=== PATIENT | female | born 1990 | race Caucasian/White ===

== ENCOUNTER 2018-01-14 19:28 | Emergency (ER) | payer SELFPAY ==
[2018-01-14 20:47] LABS: Absolute Lymphocytes (CBC) 4.1 K/uL (0.7-4.9); Absolute Neutrophil 4.7 K/uL (1.8-8.0); Basophils % 0.7 % (0-1.3); Eosinophils % 1.4 % (0-4.4); Hematocrit 40.1 % (36.0-45.0); Lymphocytes % 40.5 % (15.3-44.8); MCH 31.2 pg (27.0-35.0); MCV 90.7 fL (80-100); MPV 8.9 fL (7.6-11.3); Monocytes % 10.5 % (3.3-12.3); RBC Red Blood Cell Count 4.43 M/uL (3.86-4.86)
[2018-01-14 20:51] LABS: Protime INR 1.07
[2018-01-14 20:57] LABS: Bicarbonate 25 mEq/L (21-31); Glucose Level 89 mg/dL (65-120); Potassium 3.3 mEq/L (3.6-5.0); Sodium Level 137 mEq/L (135-145)
[2018-01-14 20:58] LABS: BUN Blood Urea Nitrogen 13 mg/dL (6-20); Magnesium 1.9 mg/dL (1.8-2.5)
[2018-01-14] MEDS ORDERED: POTASSIUM 25 MEQ EFFERV TAB ONE (21:06)
--- NOTE | 2018-01-14 21:09 | ER ---
Nurse's Notes [facility] Name: Kristen Rose Age: 27 yrs Sex: Female : 1990 Arrival Date: 01/14/2018 Time: 19:31 Bed 30 Private MD: Diagnosis: Person with feared health complaint in whom no diagnosis is made Presentation: 01/14 19:34 Presenting complaint: Patient states: I think I got bit by something on my right leg la1 and I am having pain in my neck and back. I have also been bruising really easily. Transition of care: patient was not received from another setting of care. Onset of symptoms was January 14, 2018. Initial Sepsis Screen: Does the patient meet any 2 criteria? No. Patient's initial sepsis screen is negative. Does the patient have a suspected source of infection? No. Patient's initial sepsis screen is negative. Care prior to arrival: None. 19:34 Method Of Arrival: Ambulatory la1 19:34 Acuity: GARY 3 la1 Triage Assessment: 21:17 General: Appears in no apparent distress. well groomed, well developed, well nourished, rk2 Behavior is calm, cooperative. Pain: Complains of pain in back pain. Neuro: Level of Consciousness is alert, obeys commands, Oriented to person, place, time, situation. Respiratory: Airway is patent Respiratory effort is even, unlabored, Respiratory pattern is regular, symmetrical. GI: Reports nausea. Derm: Skin is pink, warm \T\ dry. 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 - Social history:: Smoking status: Patient uses tobacco products, smokes one-half pack cigarettes per day. Screenin:00 Abuse screen: Denies threats or abuse. rk2 20:00 Nutritional screening: No deficits noted. Tuberculosis screening: No symptoms or risk rk2 factors identified. Fall Risk None identified. Assessment: 20:45 Reassessment: No changes from previously documented assessment. Patient and/or family rk2 updated on plan of care and expected duration. Pain level reassessed. Pt. resting in room... appears to be in no obvious distress. No needs voiced. Vital Signs: 19:36 BP 131 / 82; Pulse 82; Resp 19; Temp 98.5(TE); Pulse Ox 100% on R/A; Weight 66.68 kg; la1 Height 5 ft. 7 in. (170.18 cm); 21:05 BP 137 / 73; Pulse 91; Resp 17; Pulse Ox 100% on R/A; rk2 19:36 Body Mass Index 23.02 (66.68 kg, 170.18 cm) la1 ED Course: 19:31 Patient arrived in ED. ds1 19:35 Triage completed. la1 19:36 Arm band placed on left wrist. la1 19:37 Yeison Roth PA is PHCP. cp 19:37 Mike Tolbert MD is Attending Physician. cp 19:40 Latrice Strauss, YE is Primary Nurse. rk2 20:00 Patient has correct armband on for positive identification. Bed in low position. Call rk2 light in reach. 21:33 No provider procedures requiring assistance completed. IV discontinued. rk2 Administered Medications: 21:15 Drug: Potassium Effervescent Tablet 25 mEq Route: PO; rk2 21:34 Follow up: Response: No adverse reaction rk2 Outcome: 21:08 Discharge ordered by . cp 21:33 Discharged to home ambulatory. rk2 21:33 Condition: good 21:33 Discharge instructions given to patient. 21:35 Patient left the ED. rk2 Signatures: Belinda Dickey ds1 Juliocesar Spears RN RN la1 Yeison Roth PA PA cp Latrice Strauss RN RN rk2
--- NOTE | 2018-01-14 21:10 | EDPHYS ---
Physician Documentation [facility] Name: Kristen Rose Age: 27 yrs Sex: Female : 1990 Arrival Date: 01/14/2018 Time: 19:31 Bed 30 Private MD: ED Physician Mike Tolbert HPI: 01/14 20:10 This 27 yrs old Female presents to ER via Ambulatory with complaints of cp Spider Bite, Leg Swelling, Nausea. 20:10 The patient was bitten on the right leg, by possible spider. Onset: The cp symptoms/episode began/occurred today. Associated signs and symptoms: Pertinent negatives: fever, pain at site, suspected foreign body. Patient also reports concern for easy bruising and swelling of legs, nausea, intermittent chest and abdominal pain. 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 - Social history:: Smoking status: Patient uses tobacco products, smokes one-half pack cigarettes per day. ROS: 20:15 Constitutional: Negative for body aches, chills, fever, poor PO intake. cp 20:15 Eyes: Negative for injury, pain, redness, and discharge. cp 20:15 ENT: Negative for drainage from ear(s), ear pain, sore throat, difficulty swallowing, difficulty handling secretions. 20:15 Cardiovascular: Negative for chest pain, palpitations. 20:15 Respiratory: Negative for cough, shortness of breath, wheezing. 20:15 MS/extremity: Positive for swelling, of the right leg and left leg, Negative for injury or acute deformity, pain, paresthesias. 20:15 Neuro: Negative for altered mental status, dizziness, headache, syncope, near syncope, weakness. 20:15 Hematologic/Lymphatic: Positive for "bruising" of legs, Negative for abnormal bleeding, swollen nodes. 20:15 All other systems are negative. Exam: 20:18 Constitutional: The patient appears in no acute distress, alert, awake, non-toxic, well cp developed, well nourished, anxious. 20:18 Head/Face: Normocephalic, atraumatic. Eyes: Pupils equal round and reactive to light, cp extra-ocular motions intact. Lids and lashes normal. Conjunctiva and sclera are non-icteric and not injected. Cornea within normal limits. Periorbital areas with no swelling, redness, or edema. ENT: Nares patent. No nasal discharge, no septal abnormalities noted. Tympanic membranes are normal and external auditory canals are clear. Oropharynx with no redness, swelling, or masses, exudates, or evidence of obstruction, uvula midline. Mucous membranes moist. Chest/axilla: Normal chest wall appearance and motion. Nontender with no deformity. No lesions are appreciated. 20:18 Cardiovascular: Rate: normal, Rhythm: regular, Heart sounds: murmur, not appreciated, rub, not appreciated, gallop, not appreciated, Edema: is not appreciated, JVD: is not appreciated. 20:18 Respiratory: the patient does not display signs of respiratory distress, Respirations: normal, no use of accessory muscles, no retractions, no splinting, no tachypnea, labored breathing, is not present, Breath sounds: are clear throughout, no decreased breath sounds, no stridor, no wheezing. 20:18 Abdomen/GI: Inspection: abdomen appears normal, Bowel sounds: active, all quadrants, Palpation: soft, in all quadrants, mild abdominal tenderness, in the left lower quadrant, rebound tenderness, is not appreciated, voluntary guarding, is not appreciated, involuntary guarding, is not appreciated. 20:18 Back: pain, is absent, ROM is normal. 20:18 Musculoskeletal/extremity: Exam is negative for bony tenderness, calf tenderness, deformity, edema, injury, ROM: intact in all extremities, Sensation intact. 20:18 Skin: cellulitis, is not appreciated, injury, is not appreciated, no rash present. 20:18 Neuro: Orientation: to person, place \\T\\ time. Mentation: lucid, able to follow commands, Cerebellar function: is grossly normal, Motor: moves all fours, strength is normal, Sensation: no obvious gross deficits. Vital Signs: 19:36 BP 131 / 82; Pulse 82; Resp 19; Temp 98.5(TE); Pulse Ox 100% on R/A; Weight 66.68 kg; la1 Height 5 ft. 7 in. (170.18 cm); 21:05 BP 137 / 73; Pulse 91; Resp 17; Pulse Ox 100% on R/A; rk2 19:36 Body Mass Index 23.02 (66.68 kg, 170.18 cm) la1 MDM: 19:37 Patient medically screened. cp 21:00 Differential diagnosis: cellulitis, abscess, blood clotting disorder, renal cp insufficiency. 21:05 Data reviewed: vital signs, nurses notes, lab test result(s), and as a result, I will cp discharge patient. 01/14 20:03 Order name: CBC with Diff; Complete Time: 21:03 cp 01/14 20:03 Order name: BMP; Complete Time: 21:03 cp 01/14 21:03 Interpretation: Normal except: K 3.3. cp 01/14 20:03 Order name: PT-INR; Complete Time: 21:03 cp 01/14 21:04 Interpretation: Abnormal: PT 12.6. cp 01/14 20:03 Order name: Ptt, Activated; Complete Time: 21:03 cp 01/14 20:03 Order name: Magnesium; Complete Time: 21:03 cp 01/14 21:02 Order name: Urine Dipstick--Ancillary (enter results) rg2 01/14 20:03 Order name: Urine Dipstick-Ancillary (obtain specimen); Complete Time: 21:04 cp 01/14 20:03 Order name: Urine Test (obtain specimen); Complete Time: 21:04 cp 01/14 21:02 Order name: Urine --Ancillary (enter results) rg2 Administered Medications: 21:15 Drug: Potassium Effervescent Tablet 25 mEq Route: PO; rk2 21:34 Follow up: Response: No adverse reaction rk2 Disposition: 01/14/18 21:08 Discharged to Home. Impression: Person with feared health complaint in whom no diagnosis is made. - Condition is Stable. - Medication Reconciliation Form, Thank You Letter, Antibiotic Education, Prescription Opioid Use form. - Follow up: Private Physician; When: 2 - 3 days; Reason: Recheck today's complaints. - Problem is new. - Symptoms are unchanged. Addendum: 01/29/2018 10:02 Co-signature as Attending Physician, Mike Tolbert MD. m a2 Signatures: Dispatcher [employer] EDMS Juliocesar Spears RN RN la1 Yeison Roth PA PA cp Alzahri, Mohammad, MD MD ma2 Latrice Strauss RN RN rk2 Corrections: (The following items were deleted from the chart) 01/14 21:35 21:08 01/14/2018 21:08 Discharged to Home. Impression: Person with feared health rk2 complaint in whom no diagnosis is made. Condition is Stable. Forms are Medication Reconciliation Form, Thank You Letter, Antibiotic Education, Prescription Opioid Use. Follow up: Private Physician; When: 2 - 3 days; Reason: Recheck today's complaints. Problem is new. Symptoms are unchanged. cp 01/15 20: 20:10 Constitutional: Negative for body aches, chills, fever, poor PO intake, cp cp 20:13 20:10 Eyes: Negative for injury, pain, redness, and discharge, cp cp 20:13 20:10 ENT: Negative for drainage from ear(s), ear pain, sore throat, difficulty cp swallowing, difficulty handling secretions, cp 20:13 20:10 Neck: Negative for pain with movement, pain at rest, stiffness, tenderness, bony cp tenderness, cp 20:13 20:10 Cardiovascular: Negative for chest pain, edema, palpitations, cp cp 20:13 20:10 Respiratory: Negative for cough, shortness of breath, wheezing, cp cp 20:13 20:10 Abdomen/GI: Positive for abdominal pain, nausea, Negative for vomiting, diarrhea, cp constipation, anorexia, black/tarry stool, rectal bleeding, cp 20:13 20:10 Back: Negative for pain at rest, pain with movement, radiated pain, cp cp 20:13 20:10 : Negative for urinary symptoms, pelvic pain, cp cp 20:13 20:10 Hematologic/Lymphatic: Positive for easy bruising, cp cp 20:13 20:10 MS/extremity: Positive for swelling, of the right leg and left leg, cp cp 20:13 20:10 Neuro: Negative for altered mental status, dizziness, headache, syncope, near cp syncope, weakness, cp 20:13 20:10 All other systems are negative, cp cp
[2018-01-14 21:34] LABS: Urine Blood TRACE (NEG); Urine Glucose NEGATIVE (NEG); Urine Protein NEGATIVE (NEG); Urine Specific Gravity 1.015 (1.005-1.030)
== END 2018-01-14 21:35 | disposition home or self-care (01) ==
LOC: ER 19:28
DX: Z71.1 Person with feared health complaint in whom no diagnosis is made (principal); F17.210 Nicotine dependence, cigarettes, uncomplicated
CPT/HCPCS: 36415; 80048; 81003; 81025; 83735; 85025; 85610; 85730; 99283

== ENCOUNTER 2021-08-05 11:03 | Emergency (ER) | payer BC, SELFPAY ==
--- OUTSIDE RECORDS SUMMARY | 2021-08-05 11:11 | XMS REPORT | Continuity of Care Document ---
:1990 Author Organization [facility] t Address [address] [place] [address] [address]. [address] [place] [address] Care Team Providers Name Role Phone Juanito NORMAN APRN Attending Clinician Unavailable Shaina ROSENBAUM Attending Clinician Unavailable Advance Directives Directive Decision Effective Date Termination Date Comments Sour ce Yes N/A [facility] Condition Condition Condition Status Onset Resolution Last Treating Co mments Source Name Details Category Date Date Treatment Clinician Date Abnormal Problem Active [facility] vaginal S bleeding Health Nausea Problem Active [facility] Problem Problem [facility] Allergies, Adverse Reactions, Alerts This patient has no known allergies or adverse reactions. Social History Social Habit Start Date Stop Date Quantity Comments Source Sex Assigned At [birth year] Female [facility] 00:00:00 00:00:00 Smoking Status Start Date Stop Date Source Never smoked tobacco (finding) C Snapsheet Medications Ordered Filled Start Stop Current Ordering Indication Dosage Frequency Signature Comments Components Source Medication Medication Date Date Medication? Clinician (SIG) Name Name Cyclobenzap No 5mg Tid Prn as [facility] rine Hcl 12-03 needed for S (Flexeril) 22:50: Muscle Healt h 5 Mg TAB 00 Pain Naproxen No 500mg Twice A SARABJIT TU (Naprosyn) 12-03 Day as S 500 Mg TAB 22:50: needed for H ealth 00 Pain Tramadol No 50mg Q 4-6 Hr SARABJIT TU Hcl 12-03 Prn as S (Ultram) 50 22:50: needed for Health Mg TAB 00 Pain Metoclopram 0 No 10mg Three SARABJIT TU aj Hcl 1-18 Times A S (Reglan) 10 12:39: Day as Heal th Mg TAB 00 needed for Nausea Metoclopram 0 No 10mg Three SARABJIT TU aj Hcl 1-18 Times A S (Reglan) 10 12:39: Day as Heal th Mg TAB 00 needed for Nausea Vital Signs Vital Name Observation Time Observation Value Comments Source BP Diastolic 2020-12-03 23:20:00 72 mm[Hg] [facility] [employer] BP Systolic 2020-12-03 23:20:00 136 mm[Hg] [facility] [employer] Heart Rate 2020-12-03 23:20:00 88 /min [facility] Respiratory rate 2020-12-03 23:20:00 16 /[facility] Temperature 2020-12-03 23:20:00 98.7 [degF] [facility] Respiratory rate 2020-12-03 21:13:00 16 /min [facility] [employer] Heart Rate 2020-12-03 20:04:00 88 /min [facility] [employer] Respiratory rate 2020-12-03 20:04:00 18 /min [facility] Body Temperature 2020-12-03 20:04:00 98.7 [degF] [facility] Diastolic 2020-12-03 20:04:00 72 mm[Hg] [facility] [employer] BP Systolic 2020-12-03 20:04:00 136 mm[Hg] [facility] [employer] Body Temperature 2019-09-22 12:49:00 97.8 [degF] [facility] Heart Rate 2019-09-22 12:49:00 79 /min [facility] Respiratory rate 2019-09-22 12:49:00 18 /min [facility] [employer] BP Systolic 2019-09-22 12:49:00 100 mm[Hg] [facility] BP Diastolic 2019-09-22 12:49:00 63 mm[Hg] [facility] Weight 2019-09-22 11:27:00 136 [lb_av] [facility] BMI (Body Mass Index) 2019-09-22 11:27:00 20.7 kg/m2 [facility] Procedures Procedure Date / Time Performed Performing Clinician Sour e Computed tomography of 2020-12-03 00:00:00 [employer] cervical spine without contrast Computed tomography of 2020-12-03 00:00:00 [facility] [employer] head or brain without contrast X-ray of lumbosacral 2020-12-03 00:00:00 [facility] [employer] spine, two or three views Encounters Start End Encounter Admission Attending Care Care Encounter Source Date/Time Date/Time Type Type Clinicians Facility Department ID 2020-12-03 Inpatient EDITH SHARMA [id number] [facility] 20:02:00 [id number] [facility] 2020-12-24 2020-12-24 Outpatient EDITH ALBERTO [id number] [facility] 11:07:00 11:07:00 EDWARD [id number] [facility] 2020-12-03 2020-12-03 Departed GAL SHARMA [id number] [facility] 20:02:00 23:22:00 Emergency [facility] [address] [facility] 2019-11-15 2019-11-15 Outpatient ASAD GARCIA 1 [id number] [facility] 10:30:00 10:30:00 [id number] [facility] 2019-09-22 2019-09-22 Registered TRINIDADGABRIELA TRINIDAD LA00 [id number] [facility] 11:08:00 11:08:00 Emergency [facility] 73 [facility] Results Test Description Test Time Test Comments Results Result Comments Source Specific gravity of Urine by Refractometry 2020-12-03 21:15: 00 Test Item Value Reference Range Interpretation Comme nts Urine Specific [place] (Refractom) (test code = 5810-7) 1.020 1.005-1.030 [facility] HealthUrine beta-human chorionic gonadotropin (BhCG) detection 2020-12-03 21:15:00 Test Item Value Reference Range Interpretation Comments Urine Test (test code = Negative Negative 2-1) [facility] HealthUrinalysis specimen collection [id number] 11:45:00 Test Item Value Reference Range Interpretation Comments Urine Source (test code = Cl Catch [place] 44324-9) [facility] HealthUrine color [id number] 11:45:00 Test Item Value Reference Range Interpretation Comments Urine Color (test code = 5778-6) Red Yellow [facility] HealthUrine appearance [id number] 11:45:00 Test Item Value Reference Range Interpretation Comments Urine Appearance (test code = Very Cloudy Clear 5767-9) [facility] HealthUrine pH measurement by test [id number] 11:45:00 Test Item Value Reference Range Interpretation Comments Urine pH (test code = 5803-2) 6.0 [pH] 5.0-9.0 [facility] HealthSpecific gravity of Urine by Test [id number] 11:45:00 Test Item Value Reference Range Interpretation Comments Urine Specific [place] (test code = 1.020 1.000-1.030 5811-5) [facility] HealthUrine protein measurement by automated test strip (mass/volume) 2019-09-22 11:45:00 Test Item Value Reference Range Interpretation Comments Urine Protein (test code = 85230-3) 30 mg/dL Negative [facility] HealthUrine glucose measurement by automated test strip (mass/volume) 2019-09-22 11:45:00 Test Item Value Reference Range Interpretation Comments Urine Glucose (UA) (test code = Normal mg/dL Normal 88834-1) [facility] HealthUrine ketones detection by automated test [id number] 11:45:00 Test Item Value Reference Range Interpretation Comments Urine Ketones (test code = Negative mg/dL Negative 74654-6) [facility] HealthUrine erythrocytes count by automated test strip (number/volume) 2019-09-22 11:45:00 Test Item Value Reference Range Interpretation Comments Urine Occult Blood (test code = 250 /uL Negative 43000-8) [facility] HealthUrine nitrite detection by automated test [id number] 11:45:00 Test Item Value Reference Range Interpretation Comments Urine Nitrite (test code = 68528-6) Negative Negative [facility] HealthUrine total bilirubin detection by automated test [id number] 11:45:00 Test Item Value Reference Range Interpretation Comments Urine Bilirubin (test code = Negative mg/dL Negative 16333-4) [facility] HealthUrine urobilinogen measurement by automated test strip (mass/volume)2019-09-22 11:45:00 Test Item Value Reference Range Interpretation Comments Urine Urobilinogen (test code = Normal mg/dL Normal 48807-5) [facility] HealthUrine leukocyte esterase detection by automated test strip 2019-09-22 11:45:00 Test Item Value Reference Range Interpretation Comments Urine Leukocyte Esterase (test code = 100 /uL Negative 99991-0) [facility] HealthUrine microscopic examination for dysmorphic red blood cells 2019-09-22 11:45:00 Test Item Value Reference Range Interpretation Comments Urine RBC (test code = 33132-4) 100+ /[HPF] 0-2 [facility] HealthAutomated leukocytes count in urine sediment by microscopy high power field (number/[id number] 11:45:00 Test Item Value Reference Range Interpretation Comments Urine WBC (test code = 5821-4) 2-4 /[HPF] 0-5 [facility] HealthUrine sediment squamous epithelial cell count by microscopy (number/lowpower field)2019-09-22 11:45:00 Test Item Value Reference Range Interpretation Comments Urine Squamous Epithelial Cells 1+ Few /[LPF] (test code = 02372-2) [facility] HealthUrine sediment bacteria count by microscopy (number/high power field)2019-09-22 11:45:00 Test Item Value Reference Range Interpretation Comments Urine Bacteria (test code = 1+ Few /[HPF] Few/HPF 5769-5) [facility] HealthService comment [id number] 11:45:00 Test Item Value Reference Range Interpretation Comments Urine Culture Indicated No, Criteria Not Met (test code = 8264-4) [facility] HealthAutomated blood leukocyte count (number/volume)2019-09-22 11:35:00 Test Item Value Reference Range Interpretation Comments White Blood Count (test code = 4.0 10*3/uL 4.6-10.2 6690-2) [facility] HealthBlood erythrocytes automated count (number/volume)2019-09-22 11:35:00 Test Item Value Reference Range Interpretation Comments Red Blood Count (test code = 4.27 10*6/uL 4.2-5.4 789-8) [facility] HealthBlood hemoglobin measurement (mass/volume)2019-09-22 11:35:00 Test Item Value Reference Range Interpretation Comments Hemoglobin (test code = 718-7) 13.0 g/dL 12.0-16.0 [facility] HealthAutomated blood hematocrit (volume fraction)2019-09-22 11:35:00 Test Item Value Reference Range Interpretation Comments Hematocrit (test code = 4544-3) 39.0 % 37.0-47.0 [facility] HealthAutomated erythrocyte mean corpuscular volume (MCV) measurement 2019-09-22 11:35:00 Test Item Value Reference Range Interpretation Comments Mean Corpuscular Volume (test code = 91.3 fL 80-97 787-2) [facility] HealthAutomated erythrocyte mean corpuscular hemoglobin (mass per erythrocyte)2019-09-22 11:35:00 Test Item Value Reference Range Interpretation Comments Mean Corpuscular Hemoglobin (test 30.4 pg 27.0-31.2 code = 785-6) [facility] HealthAutomated erythrocyte mean corpuscular hemoglobin concentration (MCHC) measurement ([id number] 11:35:00 Test Item Value Reference Range Interpretation Comments Mean Corpuscular Hemoglobin Concent 33.3 g/dL 31.8-35.4 (test code = 786-4) [facility] HealthAutomated erythrocyte distribution width [id number] 11:35:00 Test Item Value Reference Range Interpretation Comments Red Cell Distribution Width (test code 12.9 % 12.5-18.0 = 788-0) [facility] HealthAutomated blood platelet count (count/volume)2019-09-22 11:35:00 Test Item Value Reference Range Interpretation Comments Platelet Count (test code = 319 10*3/uL 142-424 777-3) [facility] HealthAutomated blood neutrophil count as percentage of total [id number] 11:35:00 Test Item Value Reference Range Interpretation Comments Neutrophils (%) (Auto) (test code = 42.7 % 37-80 770-8) [facility] HealthAutomated blood lymphocyte count as percentage of total [id number] 11:35:00 Test Item Value Reference Range Interpretation Comments Lymphocytes (%) (Auto) (test code = 43.4 % 25-40 736-9) [facility] HealthAutomated blood monocyte count as percentage of total leukocytes 2019-09-22 11:35:00 Test Item Value Reference Range Interpretation Comments Monocytes (%) (Auto) (test code = 10.7 % 1-15 5905-5) [facility] HealthAutomated blood eosinophil count as percentage of total [id number] 11:35:00 Test Item Value Reference Range Interpretation Comments Eosinophils (%) (Auto) (test code = 2.2 % 1-3 713-8) [facility] HealthAutomated blood basophil count as percentage of total leukocytes 2019-09-22 11:35:00 Test Item Value Reference Range Interpretation Comments Basophils (%) (Auto) (test code = 1.0 % 0-3 706-2) [facility] HealthAutomated blood nucleated erythrocyte count as percentage of total [id number] 11:35:00 Test Item Value Reference Range Interpretation Comments Nucleated Red Blood Cells % (test code 0.0 % = 87771-4) [facility] HealthAutomated blood neutrophil count (number/volume)2019-09-22 11:35:00 Test Item Value Reference Range Interpretation Comments Neutrophils # (Auto) (test code 1.72 10*3/uL 1.8-7.7 = 751-8) [facility] HealthSodium measurement (moles/volume)2019-09-22 11:35:00 Test Item Value Reference Range Interpretation Comments Sodium Level (test code = 56817-2) 137 mmol/L 135-145 [facility] HealthSerum or plasma potassium measurement (moles/volume)2019-09-22 11:35:00 Test Item Value Reference Range Interpretation Comments Potassium Level (test code = 3.8 mmol/L 3.6-5.2 2823-3) [facility] HealthSerum or plasma chloride measurement (moles/volume)2019-09-22 11:35:00 Test Item Value Reference Range Interpretation Comments Chloride Level (test code = 101 mmol/L 742-127 1670-0) [facility] HealthSerum or plasma carbon dioxide measurement (moles/volume) 2019-09-22 11:35:00 Test Item Value Reference Range Interpretation Comments Carbon Dioxide Level (test code = 28 mmol/L -32 2027-9) [facility] HealthSerum or plasma urea nitrogen measurement (mass/volume)2019-09-22 11:35:00 Test Item Value Reference Range Interpretation Comments Blood Urea Nitrogen (test code = 8 mg/dL 03-22 3094-0) [facility] HealthSerum or plasma creatinine measurement (mass/volume)2019-09-22 11:35:00 Test Item Value Reference Range Interpretation Comments Creatinine (test code = 2160-0) 0.77 mg/dL 0.55-1.02 [facility] HealthGFR estimate [id number] 11:35:00 Test Item Value Reference Range Interpretation Comments Estimat Glomerular Filtration Rate > 60 >60 (test code = 71994-9) [facility] HealthSerum or plasma urea nitrogen/creatinine mass [id number] 11:35:00 Test Item Value Reference Range Interpretation Comments BUN/Creatinine Ratio (test code 10.38 {ratio} 03-22 = 3097-3) [facility] HealthSerum or plasma glucose measurement (mass/volume)2019-09-22 11:35:00 Test Item Value Reference Range Interpretation Comments Glucose Level (test code = 2345-7) 106 mg/dL 70-110 [facility] or plasma calcium measurement (mass/volume)2019-09-22 11:35:00 Test Item Value Reference Range Interpretation Comments Calcium Level (test code = 45504-6) 8.9 mg/dL 8.8-10.5 [facility]
[2021-08-05 13:45] LABS: Urine Blood Negative (Negative); Urine Glucose Negative (Negative); Urine Protein Negative (Negative); Urine Specific Gravity 1.015 (1.005-1.030); Urine pH 5.5 (5.0-7.0)
[2021-08-05 13:56] LABS: Absolute Lymphocytes (CBC) 2.4 K/uL (0.7-4.9); Basophils % 0.7 % (0-1.3); Lymphocytes % 41.4 % (15.3-44.8); MPV 8.1 fL (7.6-11.3); RBC Red Blood Cell Count 3.89 M/uL (3.86-4.86)
[2021-08-05 14:42] LABS: Urine Specific Gravity/Preg 1.015 (1.005-1.030)
--- NOTE | 2021-08-05 14:43 | RAD REPORT ---
EXAM DESCRIPTION: US - TRANSVAG OB - 08/05/2021 2:24 pm CLINICAL HISTORY: with abdominal pain COMPARISON: None FINDINGS: The uterus measures 9 x 6 x 6 centimeters. A sac is present within the endometrium measur ing 6 millimeters. A yolk sac is not seen. A pole is not visualized The ovaries are normal in size echotexture. Nabothian cysts within the cervix Right and left adnexa unremarkable. No significant free fluid IMPRESSION: Sac within the endometrium may indicate early normal IUP. Gestational age 5 weeks 3 days with an PASTORA 04/04/2022. Incomplete and pseudo gestational sac associated with an ectopic pr egnancy can also have this appearance. This should be correlated clinically and with serial beta HCG levels. Follow up endovaginal sonogram in 1 week recommended
[2021-08-05 14:45] LABS: BUN Blood Urea Nitrogen 5 mg/dL (7-18); Bicarbonate 27 mmol/L (21-32); Glucose Level 88 mg/dL (74-106); HCG, Quantitative 5486 mIU/mL (1-3); Potassium 3.8 mmol/L (3.5-5.1); Sodium Level 140 mmol/L (136-145)
[2021-08-05] MEDS ORDERED: CEFTRIAXONE 1000 MG/VIAL ONE (15:43)
--- NOTE | 2021-08-05 15:47 | EDPHYS ---
Physician Documentation [facility] Name: Kristen Rose Age: 30 yrs Sex: Female : 1990 Arrival Date: 08/05/2021 Time: 11:07 Bed 19 Private MD: ED Physician Yeison Choi HPI: 08/05 12:58 This 30 yrs old Female presents to ER via Ambulatory with complaints of Pelvic Pain - 5 jmm wks preg. 12:58 The patient presents with vaginal bleeding that is. Onset: The symptoms/episode jmm began/occurred gradually, 1 day(s) ago. Modifying factors: The symptoms are alleviated by nothing, the symptoms are aggravated by nothing. Associated signs and symptoms: Pertinent negatives: fever. Is a 30-year-old female presents ED with complaints of mild vaginal bleeding beginning yesterday after intercourse. Patient also complains of some diarrhea and left lower quadrant abdominal pain. Denies vomiting.. 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 - Social history:: Smoking status: Patient/guardian denies using tobacco, the patient reports quitting approximately 2 years ago. ROS: 12:58 Constitutional: Negative for fever, chills, and weight loss, Cardiovascular: Negative jmm for chest pain, palpitations, and edema, Respiratory: Negative for shortness of breath, cough, wheezing, and pleuritic chest pain. 12:58 Abdomen/GI: Positive for abdominal pain, diarrhea. 12:58 : Positive for vaginal bleeding. 12:58 All other systems are negative. Exam: 12:58 Constitutional: This is a well developed, well nourished patient who is awake, alert, jmm and in no acute distress. Head/Face: atraumatic. Eyes: EOMI, no conjunctival erythema appreciated ENT: Moist Mucus Membranes Neck: Trachea midline, Supple Chest/axilla: Normal chest wall appearance and motion. Cardiovascular: Regular rate and rhythm. No edema appreciated Respiratory: Normal respirations, no respiratory distress appreciated 12:58 Back: Normal ROM Skin: General appearance color normal MS/ Extremity: Moves all extremities, no obvious deformities appreciated, no edema noted to the lower extremities Neuro: Awake and alert, normal gait Psych: Behavior is normal, Mood is normal, Patient is cooperative and pleasant 12:58 Abdomen/GI: Inspection: abdomen appears normal, Bowel sounds: normal, Palpation: soft, mild abdominal tenderness, in the left lower quadrant. Vital Signs: 11:29 BP 109 / 77; Pulse 102; Resp 16; Temp 98.6; Pulse Ox 100% ; Weight 65.32 kg; Height 5 vg1 ft. 8 in. (172.72 cm); Pain 4/10; 11:29 Body Mass Index 21.89 (65.32 kg, 172.72 cm) vg1 MDM: 12:58 Patient medically screened. [facility] 15:45 Data reviewed: vital signs, nurses notes. Counseling: I had a detailed discussion with eddie the patient and/or guardian regarding: the historical points, exam findings, and any diagnostic results supporting the discharge/admit diagnosis, lab results, radiology results, the need for outpatient follow up, to return to the emergency department if symptoms worsen or persist or if there are any questions or concerns that arise at home. ED course: Patient is alert nontoxic in appearance in the ED. I do not suspect an acute intra-abdominal process. Ultrasound revealed IUP. Will treat for asymptomatic bacteriuria. Patient otherwise given strict return precautions. Patient understood agrees plan of care.. 12 12:59 Order name: Abo/rh Typing; Complete Time: 15:38 [facility] 08/05 12:59 Order name: Basic Metabolic Panel; Complete Time: 14:48 [facility] 08/05 12:59 Order name: CBC with Diff; Complete Time: 14:02 [facility] 08/05 12:59 Order name: Quantitative Hcg; Complete Time: 14:48 [facility] 08/05 13:44 Order name: Urine Dipstick-Ancillary; Complete Time: 13:45 [facility] 08/05 13:46 Order name: Urine --Ancillary (enter results) bd 08/05 12:59 Order name: IV Saline Lock; Complete Time: 13:57 [facility] 08/05 12:59 Order name: Labs collected and sent; Complete Time: 13:57 [facility] 08/05 12:59 Order name: NPO; Complete Time: 13:57 [facility] 08/05 12:59 Order name: Urine Dipstick-Ancillary (obtain specimen); Complete Time: 13:57 [facility] 08/05 13:47 Order name: Urine --Ancillary; Complete Time: 14:48 EDMS 08/05 14:23 Order name: TRANSVAG OB; Complete Time: 14:48 EDMS Administered Medications: 15:43 Drug: Rocephin (cefTRIAXone) 1 grams Route: IV; Rate: bolus; Site: left antecubital; sl2 Disposition: 08/06 09:17 Co-signature as Attending Physician, Yeison Choi MD I agree with the assessment and toya plan of care. Disposition Summary: 08/05/21 15:47 Discharge Ordered Location: Home [facility] Condition: Stable [facility] Diagnosis - Pelvic and perineal pain jmm - Diarrhea, unspecified jmm Followup: [facility] - With: Private Physician - When: 2 - 3 days - Reason: Recheck today's complaints, Continuance of care, Re-evaluation by your physician Discharge Instructions: - Discharge Summary Sheet [facility] Forms: - Medication Reconciliation Form [facility] - Thank You Letter [facility] - Antibiotic Education [facility] - Prescription Opioid Use [facility] Prescriptions: - Cephalexin 500 mg Oral Capsule - take 1 capsule by ORAL route every 8 hours for 10 days; 30 capsule; Refills: 0, [facility] Product Selection Permitted Signatures: Dispatcher [employer] Yeison Payton MD MD cha Mickail, Joel, PA PA jmm Garcia, Victoria, RN RN vg1 Rita Knutson, RN RN sl2 Corrections: (The following items were deleted from the chart) 08/05 11:34 11:32 PSHx: None; vg1 vg1 14:23 13:46 1st Trimest Single 1st Fetus+US.RAD.BRZ ordered. EDSD EDSD
--- NOTE | 2021-08-05 15:47 | ER ---
Nurse's Notes [facility] Name: Kristen Rose Age: 30 yrs Sex: Female : 1990 Arrival Date: 08/05/2021 Time: 11:07 Bed 19 Private MD: Diagnosis: Pelvic and perineal pain;Diarrhea, unspecified Presentation: 08/05 11:29 Chief complaint: Patient states: States is 5 weeks and has been having LLQ and vg1 Pelvic pain x 4 days, pain is 'stabbing/cramping'. States nausea; denies vaginal bleeding or burning upon urination. States hx of Chronic Kidney Disease Stage 1. Coronavirus screen: Vaccine status: Patient reports being unvaccinated. Client denies travel out of the [place] in the last 14 days. Ebola Screen: Patient negative for fever greater than or equal to 101.5 degrees Fahrenheit, and additional compatible Ebola Virus Disease symptoms. Initial Sepsis Screen: Does the patient meet any 2 criteria? No. Patient's initial sepsis screen is negative. Does the patient have a suspected source of infection? No. Patient's initial sepsis screen is negative. Risk Assessment: Do you want to hurt yourself or someone else? Patient reports no desire to harm self or others. Onset of symptoms was August 01, 2021. 11:29 Method Of Arrival: Ambulatory 1 11:29 Acuity: GARY 3 vg1 Triage Assessment: 11:32 General: Appears in no apparent distress. uncomfortable, Behavior is calm, cooperative. vg1 Pain: Complains of pain in suprapubic area and left lower quadrant. 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 - Social history:: Smoking status: Patient/guardian denies using tobacco, the patient reports quitting approximately 2 years ago. Screenin:00 Abuse screen: Denies threats or abuse. Denies injuries from another. sl2 14:00 Nutritional screening: No deficits noted. Tuberculosis screening: No symptoms or risk sl2 factors identified. Fall Risk None identified. Vital Signs: 11:29 BP 109 / 77; Pulse 102; Resp 16; Temp 98.6; Pulse Ox 100% ; Weight 65.32 kg; Height 5 vg1 ft. 8 in. (172.72 cm); Pain 4/10; 11:29 Body Mass Index 21.89 (65.32 kg, 172.72 cm) vg1 ED Course: 11:07 Patient arrived in ED. as 11:32 Triage completed. vg1 11:32 Arm band placed on. vg1 12:53 Clark Michaud PA is PHCP. eddie 12:58 Yeison Choi MD is Attending Physician. toya 13:30 Rita Knutson, RN is Primary Nurse. sl2 13:57 Inserted saline lock: 20 gauge in left antecubital area, using aseptic technique. Blood sl2 collected. 14:00 Patient has correct armband on for positive identification. Placed in gown. Bed in low sl2 position. Side rails up X 1. 14:00 No provider procedures requiring assistance completed. sl2 14:02 Patient taken to ultrasound. via wheelchair. sl2 14:08 IV discontinued, intact, bleeding controlled, No redness/swelling at site. Pressure sl2 dressing applied. 14:25 TRANSVAG OB In Process Unspecified. EDMS Administered Medications: 15:43 Drug: Rocephin (cefTRIAXone) 1 grams Route: IV; Rate: bolus; Site: left antecubital; sl2 Outcome: 15:47 Discharge ordered by MD. morgan 15:55 Discharged to home sl2 15:55 Condition: stable 15:55 Discharge instructions given to patient, Instructed on discharge instructions, follow up and referral plans. Demonstrated understanding of instructions, follow-up care, medications, Prescriptions given X 1. 16:15 Patient left the ED. sl2 Signatures: Dispatcher [employer] EDMS Yeison Choi MD MD cha Mickail, Joel, PA PA jmm Martinez, Amelia as Garcia, Victoria, RN RN vg1 Rita Knutson, RN RN sl2 Corrections: (The following items were deleted from the chart) 11:34 11:32 PSHx: None; vg1 vg1
[2021-08-05 16:23] VITALS: BP 109/77; TEMP 98.6; O2SAT 100
== END 2021-08-05 16:15 | disposition home or self-care (01) ==
LOC: ER 11:03
DX: O26.891 Other specified pregnancy related conditions, first trimester (principal); R19.7 Diarrhea, unspecified; Z3A.01 Less than 8 weeks gestation of pregnancy
CPT/HCPCS: 36415; 76813; 80048; 81003; 81025; 84702; 85025; 86900; 86901; 96374; 99284

== ENCOUNTER 2022-02-03 17:12 | Emergency (ER) | payer OTHER ==
--- OUTSIDE RECORDS SUMMARY | 2022-02-03 17:16 | XMS REPORT | Continuity of Care Document ---
:1990 Author Organization [facility] t Address [address] [place] [address] Care Team Providers Name Role Phone [facility] Primary Care Physician Unavailable LISA COPELAND Attending Clinician Unavailable Juan STANLEY Attending Clinician Unavailable Sebastian SHAFFER Attending Clinician Lisa Copeland MD Attending Clinician Case RN, A Attending Clinician Unavailable SEBASTIAN Attending Clinician Unavailable London RAMOS Attending Clinician Doctor Unassigned, Name Attending Clinician Unavailable Juanito NORMAN APRN Attending Clinician Unavailable ROBI, Shaina Attending Clinician Unavailable Payers Payer Name Policy Type Policy Number Effective Date Expiration Date Juan combs [facility] [id number] 2021 00:00:00 Problems Condition Condition Condition Status Onset Resolution Last Treating Co mments Source Name Details Category Date Date Treatment Clinician Date Dysuria Dysuria Disease Active 2021- Univers 5-23 ity of 00:00: [place] 00 Medical Branch Vaginal Vaginal Disease Active 2021- Univers discharge discharge 5-23 ity of 00:00: [place] 00 Medical Branch ASCUS with ASCUS with Disease Active 2021- U nivers positive positive 4-11 ity of high risk high risk 00:00: [place] s HPV HPV 00 Medical cervical cervical Branch Medication Medication Disease Active 2021-0 U nivers exposure exposure 2-23 ity of during during 00:00: [place] first first 00 Medical trimester trimester Bran ch of of High risk High risk Disease Active Uni vers , , 10-28 it y of ante[place] [facility] Generalize Generalize Disease Active U nivers d anxiety d anxiety 10-28 ity of disorder disorder 00:00: [address] PTSD PTSD Disease Active Univers (post-trau (post-trau 10-28 it y of matic matic 00:00: [place] stress stress 00 Medical disorder) disorder) Bran ch History of History of Disease Active U nivers herpes herpes 10-28 ity of genitalis [place]is [place] [facility] Acute pain Acute pain Disease Active U nivers of left of left 10-28 ity of knee knee 00:00: [address] Chest Chest Disease Active Univers pain, pain, 10-28 ity of unspecifie unspecifie [place] d type Medical [place] Nausea Problem Active [facility] Problem Problem [facility] Abnormal Problem Active [facility] vaginal S bleeding Health Allergies, Adverse Reactions, Alerts Allergy Allergy Status Severity Reaction(s) Onset Inactive Treating Comm ents Source Name Type Date Date Clinician NO KNOWN Drug Active Univers ALLERGIE Class ity of S [facility] Social History Social Habit Start Date Stop Date Quantity Comments Source ASSERTION 2021-07-11 [facility] 00:00:00 [facility] History of Smoker University of tobacco use [facility] Tobacco use and 2022-01-25 2022-01-25 Never used Universit y of exposure 00:00:00 00:00:00 [facility] Alcohol intake 2022-01-25 2022-01-25 Ex-drinker [facility] 00:00:00 00:00:00 (finding) [facility] Exposure to 2021-11-14 2021-12-14 Not sure [facility] SARS-CoV-2 00:00:00 09:14:00 [facility] (event) Branch Sex Assigned At [birth year] Universit y of 00:00:00 00:00:00 [facility] Smoking Status Start Date Stop Date Source Never smoker [facility] Former smoker 2021-10-28 00:00:00 2021-10-28 00:00:00 [facility] ty [facility] [place] [facility] Medications Ordered Filled Start Stop Current Ordering Indication Dosage Frequency Signature Comments Components Source Medication Medication Date Date Medication? Clinician (SIG) Name Name ampicillin 2021- Yes [id number] 500mg Take 1 Univers 500 mg 5-27 02- capsule by ity of capsule 00:00: 04:59 mouth [place] 00 :00 every 6 Medical (six) Branch hours for 7 days. cyanocobala Yes Take by Un shayla min, 5-06 mouth. ity of vitamin 11:30: [place] [facility] (VITAMIN Branch B-12 ORAL) cyanocobala Yes Take by Un shayla min, 5-06 mouth. ity of vitamin 11:30: [place] [facility] (VITAMIN Branch B-12 ORAL) cyanocobala Yes Take by Un shayla min, 5-06 mouth. ity of vitamin 11:30: [place] Medical (VITAMIN Branch B-12 ORAL) cyanocobala Yes Take by Un shayla min, 5-06 mouth. ity of vitamin 11:30: [place] Medical (VITAMIN Branch B-12 ORAL) cyanocobala Yes Take by Un shayla min, 5-06 mouth. ity of vitamin 11:30: [place] Medical (VITAMIN Branch B-12 ORAL) metroNIDAZO Yes [id number] 500mg Take 1 Univers LE 500 mg 4-12 tablet by ity o f tablet 00:00: mouth [place] 00 every 12 Medical (twelve) Branch hours. metroNIDAZO 2021- No [id number] 500mg Take 1 Univers LE 500 mg 4-12 05-06 tablet by ity of tablet 00:00: 00:00 mouth [place] 00 :00 every 12 Medical (twelve) Branch hours. fluconazole 2021- Yes [id number] 200mg Take 1 Univers 200 mg 4-12 04-14 tablet by ity of tablet 00:00: 04:59 mouth [place] 00 :00 daily for Medical 1 day. Branch Yes Take by Unive rs vit 2-23 mouth. ity of no.124/iron 15:09: [place] /folic 40 Medical ( Branch VITAMIN ORAL) cyanocobala Yes Take by Un shayla min, 2-23 mouth. ity of vitamin 15:09: [place] B-12 40 Medical (VITAMIN Branch B-12 ORAL) flaxseed 0 Yes Take by Unive rs oil (OMEGA 2-23 mouth. ity of 3 ORAL) 15:09: [place] [address] Medical Branch 0 Yes Take by Unive rs vit 2-23 mouth. ity of no.124/iron 15:09: [place] [address] Medical ( Branch VITAMIN ORAL) cyanocobala Yes Take by Un shayla min, 2-23 mouth. ity of vitamin 15:09: [place] B-12 40 Medical (VITAMIN Branch B-12 ORAL) flaxseed Yes Take by Unive rs oil (OMEGA 2-23 mouth. ity of 3 ORAL) 15:09: [place] [address] Medical Branch Yes Take by Unive rs vit 2-23 mouth. ity of no.124/iron 15:09: [place] [address] Medical ( Branch VITAMIN ORAL) cyanocobala Yes Take by Un shayla min, 2-23 mouth. ity of vitamin 15:09: [place] B 40 Medical (VITAMIN Branch B-12 ORAL) flaxseed 0 Yes Take by Unive rs oil (OMEGA 2-23 mouth. ity of 3 ORAL) 15:09: [place] [address] Medical Branch 0 Yes Take by Unive rs vit 2-23 mouth. ity of no.124/iron 15:09: [place] [address] Medical ( Branch VITAMIN ORAL) flaxseed 0 Yes Take by Unive rs oil (OMEGA 2-23 mouth. ity of 3 ORAL) 15:09: [place] [address] Medical Branch 0 Yes Take by Unive rs vit 2-23 mouth. ity of no.124/iron 15:09: [place] [address] Medical ( Branch VITAMIN ORAL) flaxseed 0 Yes Take by Unive rs oil (OMEGA 2-23 mouth. ity of 3 ORAL) 15:09: [place] [address] Medical Branch 0 Yes Take by Unive rs vit 2-23 mouth. ity of no.124/iron 15:09: [place] [address] Medical ( Branch VITAMIN ORAL) flaxseed Yes Take by Unive rs oil (OMEGA 2-23 mouth. ity of 3 ORAL) 15:09: [address] Yes Take by Unive rs vit 2-23 mouth. ity of no.124/iron 15:09: [place] [address] Medical ( Branch VITAMIN ORAL) flaxseed Yes Take by Unive rs oil (OMEGA 2-23 mouth. ity of 3 ORAL) 15:09: [address] Yes Take by Unive rs vit 2-23 mouth. ity of no.124/iron 15:09: [place] [address] Medical ( Branch VITAMIN ORAL) flaxseed Yes Take by Unive rs oil (OMEGA 2-23 mouth. ity of 3 ORAL) 15:09: [address] PNV Yes [id number] Take 1 Univers 102-iron-fo 2-23 TAB-CAP/M2 it y of late-dha 00:00: by mouth [place] (VITAFOL FE 00 daily. Medica l PLUS) 90 mg Branch iron- 1 mg-200 mg Cap PNV Yes [id number] Take 1 Univers 102-iron-fo 2-23 TAB-CAP/M2 it y of late-dha 00:00: by mouth [place] (VITAFOL FE 00 daily. Medica l PLUS) 90 mg Branch iron- 1 mg-200 mg Cap PNV Yes [id number] Take 1 Univers 102-iron-fo 2-23 TAB-CAP/M2 it y of late-dha 00:00: by mouth [place] (VITAFOL FE 00 daily. Medica l PLUS) 90 mg Branch iron- 1 mg-200 mg Cap PNV 2021- No [id number] Take 1 Univer s 102-iron-fo 2-23 05-06 TAB-CAP/M2 i ty of late-dha 00:00: 00:00 by mouth [place] s (VITAFOL FE 00 :00 daily. Medica l PLUS) 90 mg Branch iron- 1 mg-200 mg Cap ondansetron Yes Univer s 8 mg tablet 2-19 ity of 00:00: [place] 00 Medical Branch ondansetron 2022-0 Yes Univer s 8 mg tablet 2-19 ity of 00:00: [place] 00 Medical Branch ondansetron 2-0 Yes Univer s 8 mg tablet 2-19 ity of 00:00: [place] 00 Medical Branch ondansetron 2021-0 Yes Univer s 8 mg tablet 2-19 ity of 00:00: [place] [facility] ondansetron 2021-0 Yes Univer s 8 mg tablet 2-19 ity of 00:00: [place] [facility] ondansetron 2021-0 Yes Univer s 8 mg tablet 2-19 ity of 00:00: [place] [address] Medical Branch ondansetron 2021-0 Yes Univer s 8 mg tablet 2-19 ity of 00:00: [place] [facility] ondansetron 2021-0 Yes Univer s 8 mg tablet 2-19 ity of 00:00: [place] [address] Medical Branch ALPRAZolam 2021-0 Yes Univers 1 mg tablet 2-17 ity of 00:00: [place] [facility] valACYclovi 2021-0 Yes Univer s r 500 mg 2-17 ity of tablet 00:00: [place] [address] Medical Branch ALPRAZolam 2021-0 Yes Univers 1 mg tablet 2-17 ity of 00:00: [place] [address] Medical Branch valACYclovi 2021-0 Yes Univer s r 500 mg 2-17 ity of tablet 00:00: [place] [address] Medical Branch ALPRAZolam 2021-0 Yes Univers 1 mg tablet 2-17 ity of 00:00: [place] [address] Medical Branch valACYclovi 2021-0 Yes Univer s r 500 mg 2-17 ity of tablet 00:00: [place] [facility] ALPRAZolam 2021-0 Yes Univers 1 mg tablet 2-17 ity of 00:00: [place] [address] Medical Branch valACYclovi 2021-0 Yes Univer s r 500 mg 2-17 ity of tablet 00:00: [place] 00 Medical Branch ALPRAZolam 2021-0 Yes Univers 1 mg tablet 2-17 ity of 00:00: [place] [address] Medical Branch valACYclovi 2021-0 Yes Univer s r 500 mg 2-17 ity of tablet 00:00: [place] [facility] ALPRAZolam 2021-0 Yes Univers 1 mg tablet 2-17 ity of 00:00: Medical Branch valACYclovi Yes Univer s r 500 mg 2-17 ity of tablet 00:00: Medical Branch ALPRAZolam Yes Univers 1 mg tablet 2-17 ity of 00:00: Medical Branch valACYclovi Yes Univer s r 500 mg 2-17 ity of tablet 00:00: [place] [facility] ALPRAZolam Yes Univers 1 mg tablet 2-17 ity of 00:00: [place] [facility] valACYclovi Yes Univer s r 500 mg 2-17 ity of tablet 00:00: [place] [facility] Cyclobenzap No 5mg Tid Prn as [facility] [...] th Mg TAB 00 needed for Nausea Immunizations Ordered Filled Immunization Date Status Comments [facility] e Immunization Name Name TDAP 2022-01-08 Completed [facility] 00:00:00 [facility] TDAP 2022-01-08 Completed University 00:00:00 [facility] TDAP 2022-01-08 Completed [facility] 00:00:00 [facility] TDAP 2022-01-08 Completed [facility] 00:00:00 [facility] TDAP 2022-01-08 Completed [facility] 00:00:00 [facility] Vital Signs Vital Name Observation Time Observation Value Comments Source Systolic blood 2022-01-25 18:22:00 116 mm[Hg] Univer sity of pressure [place] [facility] Diastolic blood 2022-01-25 18:22:00 74 mm[Hg] Unive rsity of pressure [place] [facility] Heart rate 2022-01-25 18:22:00 95 /min Universi ty of [place] [facility] Body temperature 2022-01-25 18:22:00 36.61 Dayna Univ ersity of [place] [facility] Respiratory rate 2022-01-25 18:22:00 16 /min Univ ersity of [place] [facility] Body height 2022-01-25 18:22:00 172.7 cm Universi ty [facility] [place] [facility] Body weight 2022-01-25 18:22:00 70.761 kg [facility] [place] [facility] BMI 2022-01-25 18:22:00 23.72 kg/m2 Universi ty of [facility] Branch Oxygen saturation in 2022-01-25 18:22:00 98 /min University of Arterial blood by [facility] Pulse oximetry Branch Systolic blood 2022-01-08 15:51:00 107 mm[Hg] Univer sity of pressure [place] [facility] Diastolic blood 2022-01-08 15:51:00 68 mm[Hg] Unive rsity of pressure [place] [facility] Heart rate 2022-01-08 15:51:00 60 /min Universi ty of [place] [facility] Body temperature 2022-01-08 15:51:00 36.89 Dayna Univ ersity of [place] [facility] Respiratory rate 2022-01-08 15:51:00 18 /min Univ ersity of [place] [facility] Body height 2022-01-08 15:51:00 172.7 cm [facility] [place] [facility] Body weight 2022-01-08 15:51:00 68.493 kg [facility] [place] [facility] BMI 2022-01-08 15:51:00 22.96 kg/m2 [facility] [place] [facility] Systolic blood 2021-12-14 14:37:00 133 mm[Hg] Univer sity of pressure [place] [facility] Diastolic blood 2021-12-14 14:37:00 71 mm[Hg] Unive rsity of pressure [place] [facility] Heart rate 2021-12-14 14:37:00 103 /min [facility] ty [facility] [place] [facility] Body temperature 2021-12-14 14:37:00 36.89 Dayna Univ ersity of [place] [facility] Respiratory rate 2021-12-14 14:37:00 18 /min [facility] Body height 2021-12-14 14:37:00 172.7 cm [facility] Body weight 2021-12-14 14:37:00 65.772 kg [facility] BMI 2021-12-14 14:37:00 22.05 kg/m2 [facility] BP Diastolic 2020-12-03 23:20:00 72 mm[Hg] [facility] BP Systolic 2020-12-03 23:20:00 136 mm[Hg] [facility] Heart Rate 2020-12-03 23:20:00 88 /min [facility] Respiratory rate 2020-12-03 23:20:00 16 /min [facility] Body Temperature 2020-12-03 23:20:00 98.7 [degF] [facility] Respiratory rate 2020-12-03 21:13:00 16 /min [facility] Heart Rate 2020-12-03 20:04:00 88 /min [facility] Respiratory rate 2020-12-03 20:04:00 18 /min [facility] Body Temperature 2020-12-03 20:04:00 98.7 [degF] [facility] BP Diastolic 2020-12-03 20:04:00 72 mm[Hg] [facility] BP Systolic 2020-12-03 20:04:00 136 mm[Hg] [facility] Body Temperature 2019-09-22 12:49:00 97.8 [degF] [facility] Heart Rate 2019-09-22 12:49:00 79 /min [facility] Respiratory rate 2019-09-22 12:49:00 18 /min [facility] BP Systolic 2019-09-22 12:49:00 100 mm[Hg] [facility] BP Diastolic 2019-09-22 12:49:00 63 mm[Hg] [facility] Weight 2019-09-22 11:27:00 136 [lb_av] [facility] BMI (Body Mass 2019-09-22 11:27:00 20.7 kg/m2 [facility] US Health Index) Procedures Procedure Date / Time Performing Clinician Source Performed POCT URINALYSIS 2022-01-25 18:37:00 Parisa Cortes [facility] TDAP VACCINE, >11 YRS, 2022-01-08 16:23:27 Javier Copeland [facility] POCT URINALYSIS W/O 2022-01-08 00:00:00 Javier Copeland [facility] SPECIFIC GRAVITY [facility] DISCLOSURE AND CONSENT, 2021-12-14 05:01:00 Doctor Unassigned, N o [facility] MEDICAL AND SURGICAL Name Medical [facility] PROCEDURES Computed tomography of 2020-12-03 00:00:00 [facility] cervical spine without contrast Computed tomography of 2020-12-03 00:00:00 [facility] head or brain without contrast X-ray of lumbosacral 2020-12-03 00:00:[address] [facility] spine, two or three views Encounters Start End Encounter Admission Attending Care Care Encounter Source Date/Time Date/Time Type Type Clinicians Facility Department ID 2020-12-03 Inpatient EDITH SHARMA [id number] [facility] 20:02:00 [id number] [facility] 2022-02-23 2022-02-23 Outpatient R [facility] [id number] Univers 10:00:00 10:00:00 [id number] [facility] [place] [facility] 2022-02-23 2022-02-23 Outpatient P [facility] [id number] Univers 10:00:00 [facility] 2022-02-12 Outpatient JAVIER TUCKER [facility] [id number] Univers 14:00:00 14:00:00 [id number] [facility] [place] [facility] 2022-02-12 2022-02-12 Outpatient R JAVIER COPELAND [facility] [id number] Univers 14:00:00 14:00:00 [facility] [place] [facility] 2022-02-04 2022-02-04 Outpatient Lili STANLEY [facility] [id number] Univers 15:15:00 15:15:00 SILKE [id number] [facility] [place] [facility] 2022-02-04 2022-02-04 Outpatient Lili STANLEY [facility] [id number] Univers 15:15:00 15:15:00 SILKE [facility] [place] [facility] 2022-01-27 2022-01-27 Case DEONTE Cortes NECHES [id number] Univers 00:00:00 00:00:00 Management Parisa BALLARD [id number] ity [id number] [id number] [address] 2022-01-26 2022-01-26 Patient Javier Copeland [facility] [id number] Univers 00:00:00 00:00:00 Secure Msg Lisa BALLARD [id number] it[id number] [id number] [address] 2022-01-26 2022-01-26 Patient Alexandra Jensen [facility] [id number] Univers 00:00:00 00:00:00 Secure Msg Shaina CALVIN [id number] [id number] [id number] De dical [address] 2022-01-25 2022-01-25 Outpatient R PARISA CORTES [facility] [id number] Univers 13:00:00 13:46:25 PARISA CORTES [facility] [place] [facility] 2022-01-25 2022-01-25 Routine Dariosharmin ILJAG NECHES [id number] Univers 13:00:00 13:46:25 Parisa NELLIE [id number] i ty of Visit [place] [id number] [address] 2022-01-25 2022-01-25 Outpatient R PARISA CORTES [facility] [id number] Univers 13:00:00 13:00:00 PARISA CORTES [id number] ity [facility] [place] 2022-01-22 2022-01-22 Outpatient R PARISA CORTES [facility] [id number] Univers 10:30:00 10:30:00 PARISA CORTES 22 0520 ity [facility] [place] 2022-01-22 2022-01-22 Outpatient R PARISA CORTES [facility] [id number] Univers 10:30:00 10:30:00 PARISA CORTES ity [facility] [place] 2022-01-08 2022-01-08 Outpatient R JAVIER COPELAND [facility] [id number] Univers 10:30:00 11:45:48 ity [facility] [place] 2022-01-08 2022-01-08 Routine Marvin [facility] [id number] [id number] Univers 10:30:00 11:45:48 Cam NELLIE [id number] i ty of Visit [place] 4[place] [id number] [address] 2021-12-17 2021-12-17 Outpatient R JADEN [facility] [id number] Univers 14:15:00 14:15:00 SILKE [facility] [place] [facility] 2021-12-15 2021-12-15 [facility] [id number] Univers 00:00:00 00:00:00 Management Dixie CALVIN [id number] it[id number] [id number] De dic[address] 2021-12-14 2021-12-14 Office Javier Copeland [facility] [id number] Univers 09:00:00 09:58:39 Visit Lisa CALVIN [id number] i [place]2.[place] [id number] De dic[address] 2021-12-14 2021-12-14 Orders Doctor MATHEWS [id number] Univers 00:00:00 00:00:00 Only Unassigned, ELIANE [id number] ity of [place] [facility] 4.2.7.2.686 Case as [id number] [address] 2020-12-242020-12-24 Outpatient EDITH ALBERTO [id number] [facility] 11:07:00 11:07:00 EDWARD [id number] [facility] 2020-12-03 2020-12-03 Departed GAL SHARMA [id number] [facility] 20:02:00 23:22:00 Emergency [facility] 24 [facility] 2019-11-15 2019-11-15 Outpatient ASAD GARCIA 1 [id number] [facility] 10:30:00 10:30:00 [id number] [facility] 2019-09-22 2019-09-22 Registered AKUA SHARMA [id number] [facility] 11:08:00 11:08:[address] [facility] [place] 73 [facility] Results Test Description Test Time Test Comments Results Result Comments Source POCT URINALYSIS W SPECIFIC GRAVITY 2022-01-25 18:38:00 Test Item Value Reference Range Interpretation Comme nts POCT U SP GRAV (test code = 3255) 1.005 mg/dl 1.005-1.025 POCT PH U (test code = 3254) Negative 5-8 POCT U LEUK EST (test code = 3263) Negative Negative - Negative POCT U NIT (test code = 3262) Negative Negative - Negative POCT U PROT (test code = 3259) Negative Negative - Negative POCT U GLU (test code = 3256) Negative Negative - Negative POCT U KETONE (test code = 3258) Negative Negative - Negative POCT U UROBILI (test code = 3260) Negative 0.2-1 POCT U BILI (test code = 3261) Negative Negative - Negative POCT U BLD (test code = 3257) Negative Negative - Negative POCT U COLOR (test code = 3266) yellow POCT U APPEAR (test code = 3267) cloudy [facility]/O SPECIFIC [id number] 16:23:00 Test Item Value Reference Range Interpretation Comments POCT PH U (test code = 3254) n/a 5-8 POCT U LEUK EST (test code = 3263) n/a Negative - Negative POCT U NIT (test code = 3262) n/a Negative - Negative POCT U PROT (test code = 3259) trace Negative - Negative POCT U GLU (test code = 3256) neg Negative - Negative POCT U KETONE (test code = 3258) n/a Negative - Negative POCT U BLD (test code = 3257) n/a Negative - Negative [facility] by Refractometry 2020-12-03 21:15:00 Test Item Value Reference Range Interpretation Comments Urine Specific [place] (Refractom) 1.020 1.005-1.030 (test code = 5810-7) [facility] beta-human chorionic gonadotropin (BhCG) detection 2020-12-03 21:15:00 Test Item Value Reference Range Interpretation Comments Urine Test (test code = Negative Negative 2111-1) [facility] Health[facility]inalysis specimen collection [id number] 11:45:00 Test Item Value Reference Range Interpretation Comments Urine Source (test code = Cl [place] 57496-8) [facility] color [id number] 11:45:00 Test Item Value Reference Range Interpretation Comments Urine Color (test code = 5778-6) Red Yellow [facility] appearance [id number] 11:45:00 Test Item Value Reference Range Interpretation Comments Urine Appearance (test code = Very Cloudy Clear 5767-9) [facility] pH measurement by test [id number] 11:45:00 Test Item Value Reference Range Interpretation Comments Urine pH (test code = 5803-2) 6.0 [pH] 5.0-9.0 [facility] HealthSpecific gravity of Urine by Test [id number] 11:45:00 Test Item Value Reference Range Interpretation Comments Urine Specific [place] (test code = 1.020 1.000-1.030 5811-5) [facility] protein measurement by automated test strip (mass/volume) 2019-09-22 11:45:00 Test Item Value Reference Range Interpretation Comments Urine Protein (test code = 88271-1) 30 mg/dL Negative [facility] glucose measurement by automated test strip (mass/volume) 2019-09-22 11:45:00 Test Item Value Reference Range Interpretation Comments Urine Glucose (UA) (test code = Normal mg/dL Normal 23234-4) [facility] ketones detection by automated test [id number] 11:45:00 Test Item Value Reference Range Interpretation Comments Urine Ketones (test code = Negative mg/dL Negative 66220-8) [facility] erythrocytes count by automated test strip (number/volume) 2019-09-22 11:45:00 Test Item Value Reference Range Interpretation Comments Urine Occult Blood (test code = 250 /uL Negative 15676-1) [facility] nitrite detection by automated test [id number] 11:45:00 Test Item Value Reference Range Interpretation Comments Urine Nitrite (test code = 80048-5) Negative Negative [facility] total bilirubin detection by automated test [id number] 11:45:00 Test Item Value Reference Range Interpretation Comments Urine Bilirubin (test code = Negative mg/dL Negative 92586-2) [facility] urobilinogen measurement by automated test strip (mass/volume)2019-09-22 11:45:00 Test Item Value Reference Range Interpretation Comments Urine Urobilinogen (test code = Normal mg/dL Normal 29311-2) [facility] leukocyte esterase detection by automated test strip 2019-09-22 11:45:00 Test Item Value Reference Range Interpretation Comments Urine Leukocyte Esterase (test code = 100 /uL Negative 09108-4) [facility] microscopic examination for dysmorphic red blood cells 2019-09-22 11:45:00 Test Item Value Reference Range Interpretation Comments Urine RBC (test code = 31134-5) 100+ /[HPF] 0-2 [facility]Automated leukocytes count in urine sediment by microscopy high power field (number/[id number] 11:45:00 Test Item Value Reference Range Interpretation Comments Urine WBC (test code = 5821-4) 2-4 /[HPF] 0-5 [facility] sediment squamous epithelial cell count by microscopy (number/lowpower field)2019-09-22 11:45:00 Test Item Value Reference Range Interpretation Comments Urine Squamous Epithelial Cells 1+ Few /[LPF] (test code = 59565-9) [facility] sediment bacteria count by microscopy (number/high power field)2019-09-22 11:45:00 Test Item Value Reference Range Interpretation Comments Urine Bacteria (test code = 1+ Few /[HPF] Few/HPF 5769-5) [facility] comment [id number] 11:45:00 Test Item Value Reference Range Interpretation Comments Urine Culture Indicated No, Criteria Not Met (test code = 8264-4) [facility]Automated blood leukocyte count (number/volume)2019-09-22 11:35:00 Test Item Value Reference Range Interpretation Comments White Blood Count (test code = 4.0 10*3/uL 4.6-10.2 6690-2) [facility]Blood erythrocytes automated count (number/volume)2019-09-22 11:35:00 Test [...] erythrocyte mean corpuscular hemoglobin concentration (MCHC) measurement ([id number] 11:35:00 Test Item Value Reference Range Interpretation Comments Mean Corpuscular Hemoglobin Concent 33.3 g/dL 31.8-35.4 (test code = 786-4) [facility]ated erythrocyte distribution width [id number] 11:35:00 Test Item Value Reference Range Interpretation Comments Red Cell Distribution Width (test code 12.9 % 12.5-18.0 = 788-0) [facility] blood platelet count (count/volume)2019-09-22 11:35:00 Test Item Value Reference Range Interpretation Comments Platelet Count (test code = 319 10*3/uL 142-424 777-3) [facility] blood neutrophil count as percentage of total [id number] 11:35:00 Test Item Value Reference Range Interpretation Comments Neutrophils (%) (Auto) (test code = 42.7 % 37-80 770-8) [facility] blood lymphocyte count as percentage of total [id number] 11:35:00 Test Item Value Reference Range Interpretation Comments Lymphocytes (%) (Auto) (test code = 43.4 % 25-40 736-9) [facility] blood monocyte count as percentage of total leukocytes 2019-09-22 11:35:00 Test Item Value Reference Range Interpretation Comments Monocytes (%) (Auto) (test code = 10.7 % 1-15 5905-5) [facility] blood eosinophil count as percentage of total [id number] 11:35:00 Test Item Value Reference Range Interpretation Comments Eosinophils (%) (Auto) (test code = 2.2 % 1-3 713-8) [facility] blood basophil count as percentage of total leukocytes 2019-09-22 11:35:00 Test Item Value Reference Range Interpretation Comments Basophils (%) (Auto) (test code = 1.0 % 0-3 706-2) [facility]ated blood nucleated erythrocyte count as percentage of total [id number] 11:35:00 Test Item Value Reference Range Interpretation Comments Nucleated Red Blood Cells % (test code 0.0 % = 59437-7) [facility] blood neutrophil count (number/volume)2019-09-22 11:35:00 Test Item Value Reference Range Interpretation Comments Neutrophils # (Auto) (test code 1.72 10*3/uL 1.8-7.7 = 751-8) [facility] HealthSodium measurement (moles/volume)2019-09-22 11:35:00 Test Item Value Reference Range Interpretation Comments Sodium Level (test code = 49857-8) 137 mmol/L 135-145 [facility] HealthSerum or plasma potassium measurement (moles/volume)2019-09-22 11:35:00 Test Item Value Reference Range Interpretation Comments Potassium Level (test code = 3.8 mmol/L 3.6-5.2 2823-3) [facility] or plasma chloride measurement (moles/volume)2019-09-22 11:35:00 Test Item Value Reference Range Interpretation Comments Chloride Level (test code = 101 mmol/L 805-704 1708-0) [facility] or plasma carbon dioxide measurement (moles/volume) 2019-09-22 11:35:00 Test Item Value Reference Range Interpretation Comments Carbon Dioxide Level (test code = 28 mmol/L 21-32 2027-9) [facility] or plasma urea nitrogen measurement (mass/volume)2019-09-22 11:35:00 Test Item Value Reference Range Interpretation Comments Blood Urea Nitrogen (test code = 8 mg/dL 03-22 3094-0) [facility] or plasma creatinine measurement (mass/volume)2019-09-22 11:35:00 Test Item Value Reference Range Interpretation Comments Creatinine (test code = 2160-0) 0.77 mg/dL 0.55-1.[facility] [id number] 11:35:00 Test Item Value Reference Range Interpretation Comments Estimat Glomerular Filtration Rate > 60 >60 (test code = 18938-9) [facility] or plasma urea nitrogen/creatinine mass [id number] 11:35:00 Test Item Value Reference Range Interpretation Comments BUN/Creatinine Ratio (test code 10.38 {ratio} 03-22 = 3097-3) [facility] or plasma glucose measurement (mass/volume)2019-09-22 11:35:00 Test Item Value Reference Range Interpretation Comments Glucose Level (test code = 2345-7) 106 mg/dL 70-110 [facility] or plasma calcium measurement (mass/volume)2019-09-22 11:35:00 Test Item Value Reference Range Interpretation Comments Calcium Level (test code = 44634-4) 8.9 mg/dL 8.8-10.5 [facility]
--- NOTE | 2022-02-03 17:39 | EDPHYS ---
Physician Documentation [facility] Name: Kristen Rose Age: 31 yrs Sex: Female : 1990 Arrival Date: 02/03/2022 Time: 17:13 Bed DIS4 Private MD: Flako Gutierrez ED Physician Ag Willis HPI: 02/03 17:36 This 31 yrs old Female presents to ER via Ambulatory with complaints of Knee Pain. pm1 17:36 The patient presents with pain, that is acute. pm1 17:36 The complaints affect the left knee. Context: The problem was sustained at work, the pm1 patient can partially bear weight, the patient is able to ambulate, Problem is a result from a previous injury: Yes. ACL tear in June of last year. Patient without surgical repair has just been wearing a brace. Onset: The symptoms/episode began/occurred last night. Modifying factors: The symptoms are alleviated by elevating leg, the symptoms are aggravated by movement, weight bearing, bending knee. Associated signs and symptoms: The patient has no apparent associated signs or symptoms. Treatment prior to arrival includes: no previous treatment. Severity of symptoms: in the emergency department the symptoms are unchanged. The patient has experienced similar episodes in the past, chronically. The patient has not recently seen a physician. 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 - Social history:: Smoking status: Patient denies any tobacco usage or history of. Patient/guardian denies using alcohol. ROS: 17:36 Constitutional: Negative for fever, chills, and weight loss, Cardiovascular: Negative pm1 for chest pain, palpitations, and edema, Respiratory: Negative for shortness of breath, cough, wheezing, and pleuritic chest pain. 17:36 Skin: Negative for injury, rash, and discoloration, Neuro: Negative for headache, weakness, numbness, tingling, and seizure. 17:36 MS/extremity: Positive for pain, of the left knee, Negative for decreased range of motion, deformity. 17:36 All other systems are negative. Exam: 17:36 Constitutional: This is a well developed, well nourished patient who is awake, alert, pm1 and in no acute distress. Head/Face: Normocephalic, atraumatic. 17:36 Skin: Warm, dry with normal turgor. Normal color with no rashes, no lesions, and no evidence of cellulitis. 17:36 Cardiovascular: Exam negative for acute changes, Rate: normal, Rhythm: regular, Pulses: no pulse deficits are appreciated, Heart sounds: normal. 17:36 Respiratory: Exam negative for acute changes, respiratory distress, shortness of breath. 17:36 Musculoskeletal/extremity: Extremities: grossly normal except: noted in the left knee: swelling, tenderness, There is no evidence of deformity. 17:36 Neuro: Exam negative for acute changes, Orientation: is normal, Motor: is normal, moves all fours. Vital Signs: 17:40 BP 128 / 83; Pulse 94; Resp 18; Temp 97.6(TE); Pulse Ox 99% on R/A; Weight 71.21 kg; ld1 Height 5 ft. 8 in. (172.72 cm); Pain 9/10; 17:40 Body Mass Index 23.87 (71.21 kg, 172.72 cm) ld1 MDM: 17:36 Refusal of service: The patient/guardian displays adequate decision making capability pm1 and despite a detailed discussion of alternatives, benefits, risks, and consequences refuses: all X-rays. 17:38 Patient medically screened. pm1 02/04 01:30 Data reviewed: vital signs. pm1 02/03 17:36 Order name: Crutches pm1 02/03 17:36 Order name: Knee Immobilizer pm1 Administered Medications: No medications were administered Disposition: 02/03 18:49 Co-signature as Attending Physician, Ag Willis MD I agree with the assessment and kdr plan of care. Disposition Summary: 02/03/22 17:38 Discharge Ordered Location: Home pm1 Problem: new pm1 Symptoms: have improved pm1 Condition: Stable pm1 Diagnosis - Unspecified internal derangement of left knee pm1 Followup: pm1 - With: Emergency Department - When: As needed - Reason: Worsening of condition Followup: pm1 - With: Giovanni Soto MD - When: 2 - 3 days - Reason: Recheck today's complaints, Continuance of care, Re-evaluation by your physician Discharge Instructions: - Discharge Summary Sheet pm1 - Crutch Use, Adult pm1 - How to Use a Knee Immobilizer pm1 - Acute Knee Pain, Adult pm1 Forms: - Work release form pm1 - Medication Reconciliation Form pm1 - Thank You Letter pm1 - Antibiotic Education pm1 - Prescription Opioid Use pm1 Signatures: Ag Willis MD MD kdr hCeikh Encinas NP [employer] pm1 Radha Orosco, RN RN ld1
--- NOTE | 2022-02-03 18:51 | ER ---
Nurse's Notes [facility] Name: Kristen Rose Age: 31 yrs Sex: Female : 1990 Arrival Date: 02/03/2022 Time: 17:13 Bed DIS4 Private MD: Flako Gutierrez Diagnosis: Unspecified internal derangement of left knee Presentation: 02/03 17:40 Chief complaint: Patient states: Left knee injury - heard a loud pop last night at ld1 work. Coronavirus screen: At this time, the client does not indicate any symptoms associated with coronavirus-19. Ebola Screen: No symptoms or risks identified at this time. Initial Sepsis Screen: Does the patient meet any 2 criteria? No. Patient's initial sepsis screen is negative. Does the patient have a suspected source of infection? No. Patient's initial sepsis screen is negative. Risk Assessment: Do you want to hurt yourself or someone else? Patient reports no desire to harm self or others. Onset of symptoms was February 03, 2022. 17:40 Method Of Arrival: Ambulatory ld1 17:40 Acuity: GARY 4 ld1 Triage Assessment: 17:41 General: Appears in no apparent distress. comfortable, Behavior is calm, cooperative, ld1 appropriate for age. Pain: Complains of pain in left knee Pain does not radiate. Pain currently is 9 out of 10 on a pain scale. Quality of pain is described as throbbing. EENT: No signs and/or symptoms were reported regarding the EENT system. Neuro: Level of Consciousness is awake, alert, obeys commands, Oriented to person, place, time, situation. Cardiovascular: Capillary refill < 3 seconds Patient's skin is warm and dry. Respiratory: Airway is patent Respiratory effort is even, unlabored, Respiratory pattern is regular, symmetrical. GI: Abdomen is round non-distended. Musculoskeletal: Reports pain in left leg. 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 - Social history:: Smoking status: Patient denies any tobacco usage or history of. Patient/guardian denies using alcohol. Screenin:47 Abuse screen: Denies threats or abuse. Denies injuries from another. Nutritional ss screening: No deficits noted. Tuberculosis screening: Never had TB. Fall Risk None identified. Assessment: 18:47 General: Appears in no apparent distress. comfortable, Behavior is calm, cooperative, ss Denies fever, feeling ill, fatigue, chills. Pain: Complains of pain in left knee. Neuro: Level of Consciousness is awake, alert, obeys commands, Oriented to person, place, time, situation. Cardiovascular: Capillary refill < 3 seconds is brisk in bilateral fingers. Respiratory: Airway is patent is compromised Respiratory effort is even, unlabored. Derm: Skin is intact, is healthy with good turgor, Skin is dry, Skin is pink, warm \T\ dry. normal. Musculoskeletal: Circulation, motion, and sensation intact. Range of motion: intact in all extremities, Swelling absent. Vital Signs: 17:40 BP 128 / 83; Pulse 94; Resp 18; Temp 97.6(TE); Pulse Ox 99% on R/A; Weight 71.21 kg; ld1 Height 5 ft. 8 in. (172.72 cm); Pain 9/10; 17:40 Body Mass Index 23.87 (71.21 kg, 172.72 cm) ld1 ED Course: 17:13 Patient arrived in ED. as 17:13 Flako Gutierrez is Private Physician. as 17:29 Yeison Roth PA is PHCP. cp 17:30 Ag Willis MD is Attending Physician. cp 17:36 PHCP role handed off by Yeison Roth PA pm1 17:36 Cheikh Encinas NP is PHCP. pm1 17:38 Giovanni Soto MD is Referral Physician. pm1 17:41 Triage completed. ld1 17:41 Arm band placed on right wrist. ld1 18:47 Donna Ambriz, YE is Primary Nurse. ss 18:47 Patient has correct armband on for positive identification. Bed in low position. ss 18:47 No provider procedures requiring assistance completed. Patient did not have IV access ss during this emergency room visit. Crutch training done. Knee immobilizer applied on left knee. Administered Medications: No medications were administered Medication: 18:47 VIS not applicable for this client. ss Outcome: 17:38 Discharge ordered by MD. pm1 18:47 Discharged to home via wheelchair, with crutches. ss 18:47 Condition: good 18:47 Discharge instructions given to patient, Instructed on discharge instructions, follow up and referral plans. crutch walking, Demonstrated understanding of instructions, follow-up care. 18:50 Patient left the ED. Signatures: Kassy Umana Shelby, RN RN Yeison Roth, GLENDY PA cp Cheikh Encinas, pm1 Radha Orosco RN RN ld1
[2022-02-03 19:06] VITALS: BP 128/83; TEMP 97.6; O2SAT 99
== END 2022-02-03 18:50 | disposition home or self-care (01) ==
LOC: ER 17:12
DX: M23.92 Unspecified internal derangement of left knee (principal); N18.1 Chronic kidney disease, stage 1
CPT/HCPCS: 99283